=== PATIENT | male | born 1960 | race Caucasian/White ===

== ENCOUNTER 2017-10-18 13:43 | Emergency (ER) | payer BC ==
[~2017-10-18] VITALS: Ht 170.2 cm; Wt 89.9 kg
[2017-10-18 13:52] VITALS: Ht 170.2 cm; Wt 89.9 kg
[2017-10-18] MEDS ORDERED: KETOROLAC 30 MG INJ IM STA (14:50)
[2017-10-18] MEDS ORDERED: NAPR-260 PO (15:03)
[2017-10-18] MEDS ORDERED: TRAM50TA2 PO (15:04)
[2017-10-18] MEDS ORDERED: CYCL-319 PO (15:04)
--- NOTE | 2017-10-18 15:13 | ERD ---
ER Documentation Chief Complaint Chief Complaint lower back pain 3-4 days, no injury noted HPI This a 57-year-old male who presents to the emergency department today complaining of low back pain for the past 3 days. States that this has happened to him in the past. States that he had x-rays approximately 8 months ago that were normal. States he has Motrin at home. States that he has used muscle relaxants in the past that has helped him but he does not currently have any. Denies any fevers or chills, loss of bowel or bladder control, hematuria or dysuria. Denies any specific trauma. ROS All systems reviewed and are negative except as per history of present illness. Medications Home Meds Active Scripts Cyclobenzaprine Hcl* (Cyclobenzaprine Hcl*) 10 Mg Tablet, 10 MG PO QHS, #7 TAB Prov:SADIE PHILLIP PA-C 10/18/17 Tramadol HCl (Tramadol HCl) 50 Mg Tablet, 50 MG PO Q4 Y for PAIN, #20 TAB Prov:SADIE PHILLIP PA-C 10/18/17 Naproxen* (Naprosyn*) 500 Mg Tablet, 500 MG PO BID Y for PAIN AND/OR INFLAMMATION, #30 TAB Prov:SADIE PHILLIP PA-C 10/18/17 Allergies Allergies: Coded Allergies: No Known Allergy (Unverified , 10/18/17) PMhx/Soc Medical and Surgical Hx: pt denies Medical Hx, pt denies Surgical Hx Hx Alcohol Use: No Hx Substance Use: No Hx Tobacco Use: No Physical Exam Vitals Vital Signs Date Time Temp Pulse Resp B/P Pulse Ox O2 Delivery O2 Flow Rate FiO2 10/18/17 13:52 98.0 97 20 137/90 99 Physical Exam Const: NAD Head: Atraumatic Eyes: Normal Conjunctiva ENT: Normal External Ears, Nose and Mouth. Neck: Full range of motion..~ No meningismus. Resp: Clear to auscultation bilaterally Cardio: Regular rate and rhythm, no murmurs Abd: Soft, non tender, non distended. Normal bowel sounds Skin: No petechiae or rashes Back: Lumbar sacral spine with midline tenderness and bilateral paraspinal tenderness. Full active range of motion. Pulses 2+. Distal neurovascular intact. Negative straight leg raise. Ext: No cyanosis, or edema Neur: Awake and alert Psych: Normal Mood and Affect Results 24 hrs Current Medications Medications (Trade) Dose Ordered Sig/Franco Route PRN Reason Start Time Stop Time Status Last Admin Dose Admin Ketorolac Tromethamine (Toradol) 30 mg ONCE STAT IM 10/18/17 14:50 10/18/17 14:51 DC 10/18/17 14:56 Procedures/MDM This is a 57-year-old male who presents to the emergency department today complaining of back pain for the past 3 days. Patient did have some midline tenderness however he declined new images at this time. Symptoms at this time is consistent with sprain versus strain versus contusion versus muscle spasm. Other differentials to consider herniated disc and degenerative disc disease. Low suspicion for acute fracture or dislocation. Patient is afebrile and otherwise well-appearing. They have no loss of bowel or bladder control. Low suspicion for cauda equina or abscess. Patient was given Toradol here in the emergency department and pain improved. Patient will be given a prescription for short course of tramadol, Naprosyn, Flexeril for home At this time the patient is stable for discharge and outpatient management. Patient should follow up with their PCP in the next 1-2 days. They may return to the emergency department sooner for any persistent or worsening of symptoms. Patient understood and agreed with the plan. Departure Diagnosis: Primary Impression: Back pain Back pain location: low back pain Chronicity: unspecified Back pain laterality: midline Sciatica presence: without sciatica Qualified Code: M54.5 - Midline low back pain without sciatica, unspecified chronicity Condition: Fair Patient Instructions: Back Pain (Acute Or Chronic) Referrals: [facility] Hours: Mon-Fri 9:00 AM - 5:00 PM Additional Instructions: Llame al doctor ANDREA y sherry shalonda MUSTAPHA PARA DENTRO DE 1-2 [place].Dgale a la secretaria que nosotros le instruimos hacer esta mustapha.Avise o llame si muhammad condicin se empeora antes de la mustapha. Regresa aqui si peor o no mejor. Take tramadol for severe pain otherwise take Naprosyn or Tylenol or Motrin. Take Flexeril for muscle spasms. Take only at night and do not drive while taking this medication SADIE PHILLIP PA-C Oct 18, 2017 15:13
== END 2017-10-18 17:22 | disposition home or self-care (01) ==
LOC: FTE 13:43
DX: M54.5 Low back pain (principal)
CPT/HCPCS: 96372; J1885